=== PATIENT | male | born 2000 | race Hispanic/Latino ===

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

== ENCOUNTER 2020-06-07 21:26 | Emergency (ER) | payer OTHER ==
--- OUTSIDE RECORDS SUMMARY | 2020-06-07 21:29 | XMS REPORT | Continuity of Care Document ---
:2000 Author Organization [facility] t Address [address] [place] [address] Care Team Providers Name Role Phone Unavailable Unavailable Unavailable Problems This patient has no known problems. Allergies, Adverse Reactions, Alerts This patient has no known allergies or adverse reactions. Medications This patient has no known medications. Procedures This patient has no known procedures. Results This patient has no known results.
--- NOTE | 2020-06-07 21:39 | EDPHYS ---
Physician Documentation [facility] Name: Pamela Mckinley Age: 20 yrs Sex: Male : 2000 Arrival Date: 06/07/2020 Time: 21:29 Bed 4 Private MD: ED Physician Richie Dhillon HPI: 06/07 21:42 This 20 yrs old Male presents to ER via Unassigned with complaints of Allergic kb Reaction. 21:42 The patient presents with itching, rash. Onset: The symptoms/episode began/occurred kb yesterday. Associated signs and symptoms: Pertinent positives: rash. Possible causes: poison oak. At home the patient or guardian has treated the symptoms with nothing. Severity of symptoms: At their worst the symptoms were mild in the emergency department the symptoms are unchanged. The patient has not experienced similar symptoms in the past. The patient has not recently seen a physician. Historical: - Allergies: 21:47 No Known Allergies; ea - Home Meds: 21:47 None [Active]; ea - PMHx: 21:47 None; ea - PSHx: 21:47 None; ea - Immunization history:: Adult Immunizations unknown. - Social history:: Smoking status: unknown. ROS: 21:42 Constitutional: Negative for fever, chills, and weight loss, MS/Extremity: Negative for kb injury and deformity, Neuro: Negative for headache, weakness, numbness, tingling, and seizure. 21:42 Skin: Positive for rash. Exam: 21:41 Constitutional: This is a well developed, well nourished patient who is awake, alert, kb and in no acute distress. Head/Face: Normocephalic, atraumatic. MS/ Extremity: Pulses equal, no cyanosis. Neurovascular intact. Full, normal range of motion. Neuro: Awake and alert, GCS 15, oriented to person, place, time, and situation. Moves all extremities. Normal gait. 21:41 Skin: consistent with contact dermatitis, on the right antecubital area, left antecubital area and neck. Vital Signs: 21:44 BP 120 / 65; Pulse 70; Resp 18; Temp 97.8; Pulse Ox 98% ; ea MDM: 21:30 Patient medically screened. kb 21:41 Data reviewed: vital signs, nurses notes. Data interpreted: Pulse oximetry: on room air kb is 100 %. Interpretation: normal. Counseling: I had a detailed discussion with the patient and/or guardian regarding: the historical points, exam findings, and any diagnostic results supporting the discharge/admit diagnosis, the need for outpatient follow up, a family practitioner, to return to the emergency department if symptoms worsen or persist or if there are any questions or concerns that arise at home. Administered Medications: 21:42 Drug: SOLU-Medrol 125 mg Route: IM; Site: left deltoid; ea 21:49 Follow up: Response: Medication administered at discharge. em Disposition: 06/08 05:03 Co-signature as Attending Physician, Richie Dhillon MD. [email or web address] Disposition: 06/07/20 21:37 Discharged to Home. Impression: Allergic contact dermatitis. - Condition is Stable. - Discharge Instructions: Contact Dermatitis, [id number]. - Prescriptions for Prednisone 20 mg Oral Tablet - take 1 tablet by ORAL route once daily for 5 days; 5 tablet. - Medication Reconciliation Form, Thank You Letter, Antibiotic Education, Prescription Opioid Use form. - Follow up: Emergency Department; When: As needed; Reason: Worsening of condition. Follow up: Private Physician; When: 2 - 3 days; Reason: Recheck today's complaints, Continuance of care, Re-evaluation by your physician. Signatures: Mackenzie Richards FNP-C FNP-Michael Raymond, RN Erin Lockhart RN Richie Torrez ea, MD MD [email or web address] Corrections: (The following items were deleted from the chart) 06/07 21:49 21:37 06/07/2020 21:37 Discharged to Home. Impression: Allergic contact dermatitis. em Condition is Stable. Forms are Medication Reconciliation Form, Thank You Letter, Antibiotic Education, Prescription Opioid Use. Follow up: Emergency Department; When: As needed; Reason: Worsening of condition. Follow up: Private Physician; When: 2 - 3 days; Reason: Recheck today's complaints, Continuance of care, Re-evaluation by your physician. kb
--- NOTE | 2020-06-07 21:51 | ER ---
Nurse's Notes [facility] Name: Pamela Mckinley Age: 20 yrs Sex: Male : 2000 Arrival Date: 06/07/2020 Time: 21:29 Bed 4 Private MD: Diagnosis: Allergic contact dermatitis Presentation: 06/07 21:44 Chief complaint: Patient states: Pt reports he started having redness and itching to ea his right arm. Coronavirus screen: At this time, the client does not indicate any symptoms associated with coronavirus-19. Ebola Screen: No symptoms or risks identified at this time. Onset: The symptoms/episode began/occurred today. Anaphylaxis evaluation, no signs or symptoms of anaphylaxis were noted. Initial Sepsis Screen: Does the patient meet any 2 criteria? No. Patient's initial sepsis screen is negative. Does the patient have a suspected source of infection? No. Patient's initial sepsis screen is negative. Risk Assessment: Do you want to hurt yourself or someone else? Patient reports no desire to harm self or others. Onset of symptoms was June 07, 2020. 21:44 Acuity: SHERI 3 ea 21:44 Method Of Arrival: Ambulatory ea Historical: - Allergies: 21:47 No Known Allergies; ea - Home Meds: 21:47 None [Active]; ea - PMHx: 21:47 None; ea - PSHx: 21:47 None; ea - Immunization history:: Adult Immunizations unknown. - Social history:: Smoking status: unknown. Screenin:43 Abuse screen: Denies threats or abuse. Nutritional screening: No deficits noted. ea Tuberculosis screening: No symptoms or risk factors identified. Fall Risk None identified. Assessment: 21:47 General: Appears in no apparent distress. Behavior is calm, cooperative, appropriate ea for age. Pain: Denies pain. Neuro: Level of Consciousness is awake, alert, obeys commands, Oriented to person, place, time. Cardiovascular: Patient's skin is warm and dry. Respiratory: Airway is patent Respiratory effort is even, unlabored, Respiratory pattern is regular, symmetrical. Derm: Skin is pink, warm \T\ dry. Vital Signs: 21:44 BP 120 / 65; Pulse 70; Resp 18; Temp 97.8; Pulse Ox 98% ; ea ED Course: :29 Patient arrived in ED. am4 21:29 Mackenzie Richards [facility]C [facility] kb 21:29 Richie Dhillon MD is Attending Physician. kb 21:42 Erin Bay, RN is Primary Nurse. ea 21:43 Arm band placed on right wrist. Patient placed in an exam room, on a stretcher, on ea pulse oximetry. 21:43 Patient has correct armband on for positive identification. Bed in low position. ea night monitor on. Pulse ox on. NIBP on. 21:46 Triage completed. ea 21:47 No provider procedures requiring assistance completed. Patient did not have IV access ea during this emergency room visit. Administered Medications: 21:42 Drug: SOLU-Medrol 125 mg Route: IM; Site: left deltoid; ea 21:49 Follow up: Response: Medication administered at discharge. em Outcome: 21:37 Discharge ordered by MD. kb 21:49 Discharged to home ambulatory. em 21:49 Condition: stable 21:49 Discharge instructions given to patient, Instructed on discharge instructions, follow up and referral plans. medication usage, Demonstrated understanding of instructions, follow-up care, medications, Prescriptions given X 1. 21:49 Patient left the ED. em Signatures: Mackenzie Richards FNP-C FNP-Michael Raymond RN RN Erin Mcdermott, RN RN Violet Hyde am4
[2020-06-07] MEDS ORDERED: METHYLPREDNISOLONE 125 MG INJ ONE (21:56)
[2020-06-07 22:41] VITALS: BP 120/65; TEMP 97.8; O2SAT 98
== END 2020-06-07 21:49 | disposition home or self-care (01) ==
LOC: ER 21:26
DX: L23.9 Allergic contact dermatitis, unspecified cause (principal)
CPT/HCPCS: 96372; 99284; J2930

== ENCOUNTER 2020-09-15 21:57 | Emergency (ER) | payer OTHER ==
--- OUTSIDE RECORDS SUMMARY | 2020-09-15 22:00 | XMS REPORT | Continuity of Care Document ---
:2000 Author Organization [facility] t Address [address] [place] [address] Care Team Providers Name Role Phone Unavailable Unavailable Unavailable Problems This patient has no known problems. Allergies, Adverse Reactions, Alerts This patient has no known allergies or adverse reactions. Medications This patient has no known medications. Procedures This patient has no known procedures. Results This patient has no known results.
--- NOTE | 2020-09-16 00:57 | ER ---
Nurse's Notes [facility] Name: Pamela Mckinley Age: 20 yrs Sex: Male : 2000 Arrival Date: 09/15/2020 Time: 22:00 Bed 17 Private MD: Diagnosis: Nondisplaced segmental fracture of shaft of radius, right arm Presentation: 09/15 22:48 Chief complaint: Patient states: Pt reports he was working on his truck and a metal ea piece slammed onto his right forearm about 30 minutes ago. Coronavirus screen: At this time, the client does not indicate any symptoms associated with coronavirus-19. Ebola Screen: No symptoms or risks identified at this time. Initial Sepsis Screen: Does the patient meet any 2 criteria? No. Patient's initial sepsis screen is negative. Does the patient have a suspected source of infection? No. Patient's initial sepsis screen is negative. Risk Assessment: Do you want to hurt yourself or someone else? Patient reports no desire to harm self or others. Onset of symptoms was September 15, 2020. 22:48 Method Of Arrival: Ambulatory ea 22:48 Acuity: SHERI 4 ea Triage Assessment: 22:51 General: Appears in no apparent distress. Behavior is calm, cooperative, appropriate ea for age. Pain: Complains of pain in right wrist and palmar aspect of right forearm. Musculoskeletal: Circulation, motion, and sensation intact. Injury Description: Deformity sustained to right arm. Historical: - Allergies: 22:52 No Known Allergies; ea - Home Meds: 22:52 None [Active]; ea - PMHx: 22:52 None; ea - PSHx: 22:52 None; ea - Social history:: Smoking status: Patient denies any tobacco usage or history of. - Family history:: not pertinent. Screenin:51 Abuse screen: Denies threats or abuse. Nutritional screening: No deficits noted. ea Tuberculosis screening: No symptoms or risk factors identified. Fall Risk None identified. Assessment: 23:56 General: Appears in no apparent distress. Behavior is calm, cooperative, appropriate ad5 for age. Neuro: No deficits noted. Level of Consciousness is awake, alert, obeys commands, Oriented to person, place, time, situation, Appropriate for age. Cardiovascular: No deficits noted. Capillary refill < 3 seconds Patient's skin is warm and dry. Respiratory: No deficits noted. Airway is patent Respiratory effort is even, unlabored, Respiratory pattern is regular, symmetrical. Musculoskeletal: Circulation, motion, and sensation intact. Capillary refill < 3 seconds, Reports pain in right arm. 09/16 01:24 Reassessment: Patient and/or family updated on plan of care and expected duration. Pain ea level reassessed. Patient is alert, oriented x 3, equal unlabored respirations, skin warm/dry/pink. Discharge instruction given to patient verbalized the understanding of instruction. Pt left ED ambulatory tolerating well. Vital Signs: 09/15 22:48 BP 130 / 89; Pulse 83; Resp 18; Temp 98.6; Pulse Ox 98% ; Weight 94.8 kg; Height 5 ft. ea 7 in. (170.18 cm); 09/16 01:00 BP 128 / 70; Pulse 80; Resp 18; Pulse Ox 99% on R/A; ea 09/15 22:48 Body Mass Index 32.73 (94.80 kg, 170.18 cm) ea ED Course: 09/15 22:00 Patient arrived in ED. es 22:48 Tootie Tang MD is Attending Physician. ma2 22:51 Triage completed. ea 22:51 Patient has correct armband on for positive identification. Bed in low position. Call ea light in reach. Side rails up X2. 22:52 Arm band placed on right wrist. Patient placed in an exam room, on a stretcher, on ea pulse oximetry. 23:56 Tim Eng is Primary Nurse. ad5 23:58 XRAY Forearm RIGHT In Process Unspecified. EDMS 23:58 Wrist Right 3 View XRAY In Process Unspecified. EDMS 09/16 00:55 Álvaro Hilliard MD is Referral Physician. ma2 01:23 No provider procedures requiring assistance completed. Patient did not have IV access ea during this emergency room visit. Administered Medications: 01:06 Drug: [place] (HYDROcodone-acetaminophen) 10 mg-325 mg 1 tabs Route: PO; ea 01:24 Follow up: Response: No adverse reaction ea Outcome: 00:57 Discharge ordered by . ma2 01:23 Discharged to home ambulatory, with family. ea 01:23 Condition: stable 01:23 Discharge instructions given to patient, Instructed on discharge instructions, follow up and referral plans. medication usage, Demonstrated understanding of instructions, follow-up care, medications, Prescriptions given X 1. 01:27 Patient left the ED. ea Signatures: Dispatcher [employer] Alexandra Frederick Elena, RN RN ea Alzahri, Mohammad, MD MD ma2 Tim Eng
--- NOTE | 2020-09-16 00:58 | EDPHYS ---
Physician Documentation [facility] Name: Pamela Mckinley Age: 20 yrs Sex: Male : 2000 Arrival Date: 09/15/2020 Time: 22:00 Bed 17 Private MD: ED Physician Tootie Tang HPI: 09/15 23:00 This 20 yrs old Male presents to ER via Ambulatory with complaints of Arm ma2 Injury. 23:00 The complaints affect the dorsal aspect of right forearm. Context: direct blow by a ma2 pipe accidently . Onset: The symptoms/episode began/occurred suddenly, 1 hour(s) ago. Associated signs and symptoms: Pertinent negatives: fever, pain, swelling. Severity of symptoms: At their worst the symptoms were moderate, in the emergency department the symptoms are unchanged. The patient has not experienced similar symptoms in the past. Historical: - Allergies: 22:52 No Known Allergies; ea - Home Meds: 22:52 None [Active]; ea - PMHx: 22:52 None; ea - PSHx: 22:52 None; ea - Social history:: Smoking status: Patient denies any tobacco usage or history of. - Family history:: not pertinent. ROS: 23:00 Constitutional: Negative for fever, chills, and weight loss. ma2 23:00 All other systems are negative. Exam: 23:00 Constitutional: This is a well developed, well nourished patient who is awake, alert, ma2 and in no acute distress. Chest/axilla: Normal chest wall appearance and motion. Nontender with no deformity. No lesions are appreciated. Cardiovascular: Regular rate and rhythm with a normal S1 and S2. No gallops, murmurs, or rubs. Normal PMI, no JVD. No pulse deficits. Respiratory: Lungs have equal breath sounds bilaterally, clear to auscultation and percussion. No rales, rhonchi or wheezes noted. No increased work of breathing, no retractions or nasal flaring. Abdomen/GI: Soft, non-tender, with normal bowel sounds. No distension or tympany. No guarding or rebound. No evidence of tenderness throughout. Skin: Warm, dry with normal turgor. Normal color with no rashes, no lesions, and no evidence of cellulitis. MS/ Extremity: right forearm contusion and pain, howver wrist is with full rom, and all hand movement is intact, Pulses equal, no cyanosis. Neurovascular intact. Full, normal range of motion. Neuro: Awake and alert, GCS 15, oriented to person, place, time, and situation. Cranial nerves II-XII grossly intact. Motor strength 5/5 in all extremities. Sensory grossly intact. Cerebellar exam normal. Normal gait. Vital Signs: 22:48 BP 130 / 89; Pulse 83; Resp 18; Temp 98.6; Pulse Ox 98% ; Weight 94.8 kg; Height 5 ft. ea 7 in. (170.18 cm); 09/16 01:00 BP 128 / 70; Pulse 80; Resp 18; Pulse Ox 99% on R/A; ea 09/15 22:48 Body Mass Index 32.73 (94.80 kg, 170.18 cm) ea Procedures: 00:54 Splinting: Splint applied to right arm using Orthoglass splint, applied by tech. nurse. ma2 post reduction film - Examined by me, post splint application: neurovascular intact, 2+ distal pulses palpable, brisk capillary refill noted, Patient tolerated well. MDM: 09/15 22:48 Patient medically screened. ma2 23:00 Differential diagnosis: dislocation, closed fracture, contusion, abrasion, tendonitis. ct2 09/16 00:54 Data reviewed: vital signs, nurses notes. Counseling: I had a detailed discussion with ma2 the patient and/or guardian regarding: the historical points, exam findings, and any diagnostic results supporting the discharge/admit diagnosis, the presence of at least one elevated blood pressure reading (>120/80) during this emergency department visit. 00:54 Response to treatment: the patient's symptoms have markedly improved after treatment. ct2 09/15 22:59 Order name: XRAY Forearm RIGHT ct2 09/15 22:59 Order name: Wrist Right 3 View XRAY ct2 09/16 00:54 Order name: Sugar Tong Forearm Splint; Complete Time: 01:24 ma2 09/16 00:54 Order name: Sling; Complete Time: 01:24 [facility] Administered Medications: 01:06 Drug: [place] (HYDROcodone-acetaminophen) 10 mg-325 mg 1 tabs Route: PO; ea 01:24 Follow up: Response: No adverse reaction ea Disposition Summary: 09/16/20 00:57 Discharge Ordered Location: Home ma2 Condition: Stable ma2 Diagnosis - Nondisplaced segmental fracture of shaft of radius, right arm ma2 Followup: ma2 - With: Private Physician - When: Tomorrow - Reason: If symptoms return, Continuance of care Followup: ma2 - With: Álvaro Hilliard MD - When: Tomorrow - Reason: If symptoms return Discharge Instructions: - Discharge Summary Sheet ma2 - Radial Fracture ma2 Forms: - Medication Reconciliation Form ma2 - Thank You Letter ma2 - Work release form ea - Antibiotic Education ma2 - Prescription Opioid Use ma2 Prescriptions: - Diclofenac Sodium 75 mg Oral Tablet Sustained Release - take 1 tablet by ORAL route 2 times per day; 30 tablet; Refills: 0, Product ma2 Selection Permitted Signatures: Dispatcher [employer] Erin Tovar RN RN Tootie Simmons MD MD ma2
[2020-09-16] MEDS ORDERED: HYDROCODONE/APAP 10/325 TAB ONE (01:21)
[2020-09-16 01:33] VITALS: TEMP 98.6
[2020-09-16 01:35] VITALS: BP 128/70; O2SAT 99
--- NOTE | 2020-09-16 07:36 | RAD REPORT ---
EXAM DESCRIPTION: RAD - Wrist Right 3 View - 09/15/2020 11:58 pm CLINICAL HISTORY: Right wrist pain status post injury FINDINGS: Comminuted mildly to moderately displaced fracture involves the mid to distal right radius . Angulation is present at the fracture site No dislocation seen
--- NOTE | 2020-09-16 07:37 | RAD REPORT ---
EXAM DESCRIPTION: RAD - Forearm Right - 09/15/2020 11:58 pm CLINICAL HISTORY: Right arm pain FINDINGS: Comminuted mildly to moderately displaced fracture involves the mid to distal right radius . Angulation is present at the fracture site
== END 2020-09-16 01:27 | disposition home or self-care (01) ==
LOC: ER 21:57
PROC: 2W3CX1Z Immobilization of Right Lower Arm using Splint (ICD-10-PCS; principal; 2020-09-16)
DX: S52.36 Segmental fracture of shaft of radius (principal); W22.8XXA Striking against or struck by other objects, initial encounter; Y92.89 Other specified places as the place of occurrence of the external cause; Y99.8 Other external cause status

== ENCOUNTER 2021-01-15 08:06 | Emergency (ER) | payer OTHER ==
[2021-01-15 08:55] LABS: Basophils % 0.6 % (0-1.3); Hematocrit 44.2 % (39.6-49.0); Lymphocytes % 38.6 % (15.3-44.8); MPV 8.4 fL (7.6-11.3); RBC Red Blood Cell Count 5.14 M/uL (4.33-5.43)
[2021-01-15 09:08] LABS: ALT/SGPT 26 U/L (12-78); AST/SGOT 13 U/L (15-37); Albumin 3.9 g/dL (3.4-5.0); Alkaline Phosphatase 117 U/L (45-117); BUN Blood Urea Nitrogen 12 mg/dL (7-18); Bicarbonate 23 mmol/L (21-32); Bilirubin Direct < 0.1 mg/dL (0-0.2); Bilirubin Total 0.2 mg/dL (0.2-1.0); Glucose Level 113 mg/dL (74-106); Lipase 135 U/L (73-393); Potassium 4.2 mmol/L (3.5-5.1); Sodium Level 139 mmol/L (136-145)
--- NOTE | 2021-01-15 10:37 | RAD REPORT ---
EXAM DESCRIPTION: CTAbdomen Pelvis W Contrast - 01/15/2021 10:18 am CLINICAL HISTORY: ABD PAIN COMPARISON: Abdomen Pelvis W Contrast dated 01/19/2017 TECHNIQUE: CT of the abdomen and pelvis was performed with IV contrast. All CT scans are performed using dose optimization technique as appropriate and may include automated exposure control or mA/KV adjustment according to patient size. FINDINGS: Lower chest: Mild circumferential thickened distal esophagus. Liver: No acute abnormality or suspicious lesions. Biliary: No biliary ductal dilatation. Stomach: No significant focal abnormality. Duodenum: No significant focal abnormality. Pancreas: Mild edema around the pancreatic head. Spleen: No significant abnormality. Adrenal: No suspicious lesions. Kidney/ureter: No hydronephrosis. No renal calculi. Retroperitoneum: No retroperitoneal adenopathy. Vascular: No aneurysm. Bowel: No significant focal abnormality. Peritoneum: No ascites or free air. Bladder: Grossly unremarkable. Reproductive: No adnexal masses. Bones: No acute fracture. Other: n/a IMPRESSION: Mild stranding around the pancreatic head which could reflect either pancreatitis or inf lammation at the duodenum. Recommend correlation with lipase. If the lipase is normal, consider endos copy to exclude either duodenitis or peptic ulcer disease. No free air is identified.
--- NOTE | 2021-01-15 10:56 | ER ---
Nurse's Notes [facility] Name: Pamela Mckinley Age: 20 yrs Sex: Male : 2000 Arrival Date: 01/15/2021 Time: 08:11 Bed 7 Private MD: Diagnosis: Abdominal pain, unspecified Presentation: 01/15 08:14 Chief complaint:. Coronavirus screen: Vaccine status: Patient reports being ll1 unvaccinated. Client denies travel out of the [place] in the last 14 days. At this time, the client does not indicate any symptoms associated with coronavirus-19. Ebola Screen: Patient denies travel to an Ebola-affected area in the 21 days before illness onset. Initial Sepsis Screen: Does the patient meet any 2 criteria? No. Patient's initial sepsis screen is negative. Does the patient have a suspected source of infection? Yes: Acute abdominal pain. Risk Assessment: Do you want to hurt yourself or someone else? Patient reports no desire to harm self or others. Onset of symptoms was January 05, 2021. 08:14 Method Of Arrival: Ambulatory [facility] 08:14 Acuity: SHERI 3 ll1 08:24 Chief complaint: Patient states: L sided and upper abd pain for 10 days.. No fever or ll1 N/V/D. Triage Assessment: 08:20 General: Appears in no apparent distress. Behavior is calm, cooperative, appropriate ap3 for age. Pain: Complains of pain in abdomen. GI: Reports lower abdominal pain, upper abdominal pain. Historical: - Allergies: 08:14 No Known Allergies; ll1 - PMHx: 08:17 None; ll1 - PSHx: 08:17 None; ll1 - Immunization history:: Client reports having NOT received the Covid vaccine. - Social history:: Smoking status: Patient denies any tobacco usage or history of. Screenin:20 Abuse screen: Denies threats or abuse. Nutritional screening: No deficits noted. ap3 Tuberculosis screening: No symptoms or risk factors identified. Fall Risk None identified. Assessment: 08:21 General: Appears in no apparent distress. Behavior is calm, cooperative, appropriate ap3 for age. Pain: Complains of pain in abdomen Pain began greater than one week ago. Neuro: Level of Consciousness is awake, alert, obeys commands, Oriented to person, place, time, situation, Appropriate for age Director Food Safety are equal bilaterally Moves all extremities. Gait is steady, Speech is normal. Cardiovascular: Patient's skin is warm and dry. Respiratory: Airway is patent. GI: Bowel sounds present X 4 quads. Abd is soft and non tender Reports normal bowel movements. : No signs and/or symptoms were reported regarding the genitourinary system. EENT: No signs and/or symptoms were reported regarding the EENT system. Derm: No signs and/or symptoms reported regarding the dermatologic system. Musculoskeletal: No signs and/or symptoms reported regarding the musculoskeletal system. 10:52 Reassessment: No changes from previously documented assessment. Patient and/or family ap3 updated on plan of care and expected duration. Pain level reassessed. Patient is alert, oriented x 3, equal unlabored respirations, skin warm/dry/pink. Vital Signs: 08:14 BP 113 / 91; Pulse 70; Resp 16; Temp 97.6; Pulse Ox 96% ; Weight 96.62 kg; Height 5 ft. ll1 7 in. (170.18 cm); Pain 6/10; 08:25 BP 134 / 75; Pulse 61; Resp 16; Pulse Ox 98% on R/A; ap3 09:03 BP 120 / 72; Pulse 55; Resp 17; Pulse Ox 100% on R/A; ap3 09:42 BP 117 / 70; Pulse 63; Resp 16; Pulse Ox 98% on R/A; ap3 08:14 Body Mass Index 33.36 (96.62 kg, 170.18 cm) ll1 ED Course: 08:11 Patient arrived in ED. as 08:13 Kayode Cortez PA is PHCP. jmm 08:13 Tootie Tang MD is Attending Physician. jmm 08:13 Arm band placed on Patient placed in an exam room, on a stretcher. ll1 08:17 Triage completed. ll1 08:20 Patient has correct armband on for positive identification. Bed in low position. Call ap3 light in reach. Side rails up X 1. Pulse ox on. NIBP on. Door closed. Noise minimized. 08:24 Linda Dooley, SHAYLA is Primary Nurse. aa5 08:38 Inserted saline lock: 20 gauge in right antecubital area, using aseptic technique. ap3 Blood collected. 10:18 CT Abd/Pelvis - IV Contrast Only In Process Unspecified. EDMS 10:52 No provider procedures requiring assistance completed. ap3 10:55 Faustino Barba MD is Referral Physician. [facility] 11:03 IV discontinued, intact, bleeding controlled, No redness/swelling at site. Pressure ap3 dressing applied. Administered Medications: No medications were administered Outcome: :55 Discharge ordered by MD. jm 11:03 Discharged to home ambulatory. ap3 11:03 Condition: good 11:03 Discharge instructions given to patient, Instructed on discharge instructions, follow up and referral plans. medication usage, Demonstrated understanding of instructions, follow-up care, medications, Prescriptions given X 1. 11:04 Patient left the ED. ap3 Signatures: Dispatcher [employer] EDMS Kayode Cortez PA PA jmm Martinez, Amelia as Calderon, Audri, RN RN aa5 Tamiko Lala RN RN ap3 Pedro Ochoa RN RN ll1
--- NOTE | 2021-01-15 10:56 | EDPHYS ---
Physician Documentation [facility] Name: Pamela Mckinley Age: 20 yrs Sex: Male : 2000 Arrival Date: 01/15/2021 Time: 08:11 Bed 7 Private MD: ED Physician Tootie Tang HPI: 01/15 08:37 This 20 yrs old Male presents to ER via Ambulatory with complaints of jmm Abdominal Cramping. 08:37 The patient presents with abdominal pain. Onset: The symptoms/episode began/occurred jmm gradually. Onset: The symptoms/episode began/occurred 1.5 week(s) ago. The symptoms do not radiate. Associated signs and symptoms: Pertinent negatives: diarrhea, fever, vomiting. The symptoms are described as achy. Modifying factors: The symptoms are alleviated by nothing, the symptoms are aggravated by nothing. The patient has not experienced similar symptoms in the past. Historical: - Allergies: 08:14 No Known Allergies; ll1 - PMHx: 08:17 None; ll1 - PSHx: 08:17 None; ll1 - Immunization history:: Client reports having NOT received the Covid vaccine. - Social history:: Smoking status: Patient denies any tobacco usage or history of. ROS: 08:37 Constitutional: Negative for fever, chills, and weight loss, Cardiovascular: Negative jmm for chest pain, palpitations, and edema, Respiratory: Negative for shortness of breath, cough, wheezing, and pleuritic chest pain. 08:37 Abdomen/GI: Positive for abdominal pain. 08:37 All other systems are negative. Exam: 08:37 Constitutional: This is a well developed, well nourished patient who is awake, alert, jmm and in no acute distress. Head/Face: atraumatic. Eyes: EOMI, no conjunctival erythema appreciated ENT: Moist Mucus Membranes Neck: Trachea midline, Supple Chest/axilla: Normal chest wall appearance and motion. Cardiovascular: Regular rate and rhythm. No edema appreciated Respiratory: Normal respirations, no respiratory distress appreciated 08:37 Back: Normal ROM Skin: General appearance color normal MS/ Extremity: Moves all extremities, no obvious deformities appreciated, no edema noted to the lower extremities Neuro: Awake and alert, normal gait Psych: Behavior is normal, Mood is normal, Patient is cooperative and pleasant 08:37 Abdomen/GI: Inspection: abdomen appears normal, Bowel sounds: normal, Palpation: soft, mild abdominal tenderness, in the epigastric area, left upper quadrant and left lower quadrant, Rectal exam: Vital Signs: 08:14 BP 113 / 91; Pulse 70; Resp 16; Temp 97.6; Pulse Ox 96% ; Weight 96.62 kg; Height 5 ft. ll1 7 in. (170.18 cm); Pain 6/10; 08:25 BP 134 / 75; Pulse 61; Resp 16; Pulse Ox 98% on R/A; ap3 09:03 BP 120 / 72; Pulse 55; Resp 17; Pulse Ox 100% on R/A; ap3 09:42 BP 117 / 70; Pulse 63; Resp 16; Pulse Ox 98% on R/A; ap3 08:14 Body Mass Index 33.36 (96.62 kg, 170.18 cm) ll1 MDM: 08:36 Patient medically screened. [facility] 10:54 Data reviewed: vital signs, nurses notes. Counseling: I had a detailed discussion with cleo the patient and/or guardian regarding: the historical points, exam findings, and any diagnostic results supporting the discharge/admit diagnosis, lab results, radiology results, the need for outpatient follow up, to return to the emergency department if symptoms worsen or persist or if there are any questions or concerns that arise at home. ED course: Patient is advised to discontinue drinking alcohol. And otherwise advised to have a clear liquid diet for the next few days. Patient is also advised to follow-up with GI and otherwise given strict return precautions. Patient understood and agrees to plan of care.. 01/15 08:37 Order name: Basic Metabolic Panel; Complete Time: 09:10 [facility] 01/15 08:37 Order name: CBC with Diff; Complete Time: 08:56 [facility] 01/15 08:37 Order name: Hepatic Function; Complete Time: 09:10 [facility] 01/15 08:37 Order name: Lipase; Complete Time: 09:10 [facility] 01/15 08:37 Order name: IV Saline Lock; Complete Time: 08:43 [facility] 01/15 08:37 Order name: CT Abd/Pelvis - IV Contrast Only; Complete Time: 10:42 [facility] 01/15 08:37 Order name: Labs collected and sent; Complete Time: 08:43 [facility] Administered Medications: No medications were administered Disposition Summary: 01/15/21 10:55 Discharge Ordered Location: Home [facility] Condition: Stable jm Diagnosis - Abdominal pain, unspecified jmm Followup: [facility] - With: Faustino Barba MD - When: 2 - 3 days - Reason: Recheck today's complaints, Continuance of care, Re-evaluation by your physician Discharge Instructions: - Discharge Summary Sheet jm - Abdominal Pain, Adult jm - Clear Liquid Diet, Adult [facility] Forms: - Medication Reconciliation Form [facility] - Thank You Letter [facility] - Antibiotic Education [facility] - Prescription Opioid Use [facility] Prescriptions: - Pepcid 20 mg Oral Tablet - take 1 tablet by ORAL route every 12 hours for 10 days; 20 tablet; Refills: 0, [facility] Product Selection Permitted Addendum: 01/18/2021 22:57 Co-signature as Attending Physician, Tootie Tang MD PA/[employer]ING [employer]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 I agree with assessment and care plan and confirm the diagnosis (es) above. Signatures: Dispatcher [employer] Kayode Lawrence PA PA jmm Alzahri, Mohammad, MD MD ma2 Pedro Ochoa RN RN ll1
[2021-01-15 11:10] VITALS: TEMP 97.6
[2021-01-15 11:14] VITALS: BP 117/70; O2SAT 98
== END 2021-01-15 11:04 | disposition home or self-care (01) ==
LOC: ER 08:06
DX: R10.9 Unspecified abdominal pain (principal)
CPT/HCPCS: 85025; 80048; 36415; 80076; 83690; 74177; 99284; Q9967